=== PATIENT | male | born 2000 | race Hispanic/Latino ===

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

== ENCOUNTER 2022-08-28 11:45 | Emergency (ER) | payer OTHER ==
[~2022-08-28] VITALS: Ht 180.3 cm; Wt 86.2 kg
[2022-08-28 11:46] VITALS: BP 142/78
== END 2022-08-28 14:43 | disposition home or self-care (01) ==
LOC: EDH 11:45
DX: S01.01XA Laceration without foreign body of scalp, initial encounter (principal); X58.XXXA Exposure to other specified factors, initial encounter; Y93.89 Activity, other specified; Y92.89 Other specified places as the place of occurrence of the external cause; Y99.8 Other external cause status
CPT/HCPCS: 12001; 99282

== ENCOUNTER 2022-09-07 17:56 | Emergency (ER) | payer OTHER ==
[~2022-09-07] VITALS: Ht 177.8 cm; Wt 81.6 kg
[2022-09-07 17:59] VITALS: BP 124/72
== END 2022-09-07 18:13 | disposition home or self-care (01) ==
LOC: EDH 17:56
DX: S01.01XD Laceration without foreign body of scalp, subsequent encounter (principal); Z88.8 Allergy status to other drugs, medicaments and biological substances; Z87.442 Personal history of urinary calculi; X58.XXXD Exposure to other specified factors, subsequent encounter